=== PATIENT | female | born 1950 ===

== ENCOUNTER 2019-11-21 12:33 | Inpatient (IN) ==
[2019-11-21] MEDS ORDERED: ALBUTEROL 2.5 MG/3 ML NEB RESP TX PRN (16:00)
[2019-11-21] MEDS ORDERED: ACETAMINOPHEN 325 MG TABLET PO PRN (16:00)
[2019-11-21] MEDS ORDERED: ONDANSETRON 4 MG/2 ML VIAL IV PRN (16:00)
[2019-11-21] MEDS: PANTOPRAZOLE 40 MG TABLET PO SCH (17:00)
[2019-11-21] MEDS: LEVOFLOXACIN INJ 750 MG in PREMIX 1 EACH IV SCH (17:04)
[2019-11-21] MEDS: GABAPENTIN 600 MG TABLET PO SCH ×2 (17:10→20:55)
[2019-11-21] MEDS: LACTATED RINGERS 1,000 ML IV SCH ×2 (17:11→23:40)
[2019-11-21] MEDS: AMPICILLIN INJ 500 MG in SODIUM CHLORIDE 0.9% 100 ML IV SCH ×2 (18:28→23:40)
[2019-11-21] MEDS: BACLOFEN 10 MG TABLET PO SCH (20:55)
[2019-11-21] MEDS: APIXABAN 5 MG TABLET PO SCH (20:55)
[2019-11-22] MEDS: LACTATED RINGERS 1,000 ML IV SCH ×2 (01:11→10:31)
[2019-11-22 04:05] LABS: Basophils # 0.1 10*3/uL (0.0-0.2); Basophils % 0.6 % (0.0-0.8); Eosinophils # 0.2 10*3/uL (0.0-0.87); Eosinophils % 2.5 % (0.00-10.9); Hematocrit 34.6 VOL% (35.7-47.0); Hemoglobin 11.5 GM/DL (12.0-16.0); Immature Granulocytes % 0.4 %; Immature Granulocytes Absolute 0.03 #; Lymphocytes % 12.7 % (21.3-54.2); Mean Corpuscular HGB Conc 33.2 GM/DL (32-36); Mean Platelet Volume 9.4 FL (9.6-12.0); Monocytes % 8.8 % (1.7-12.7); Platelet Count 198 T/CUMM (130-400); Red Blood Count 3.72 MC/CUMM (3.8-5.5); Red Cell Distribution Width 14.1 % (9.3-17.3); White Blood Count 8.1 T/CUMM (4-12)
[2019-11-22 04:23] LABS: Blood Urea Nitrogen 5 MG/DL (7-18); Calcium 8.6 MG/DL (8.5-10.1); Estimated Glom Filtration Rate 112 ML/MIN; Glucose 98 MG/DL (74-106); Troponin I < 0.015 NG/ML (0.00-0.045)
[2019-11-22 05:07] LABS: INR 1.2; PT Patient Result 12.5 SECS (9.8-11.9)
[2019-11-22] MEDS: AMPICILLIN INJ 500 MG in SODIUM CHLORIDE 0.9% 100 ML IV SCH ×3 (06:29→18:00)
[2019-11-22] MEDS ORDERED: MAGNESIUM SULF RIDER 4 GM in PREMIX 1 EACH IV ONE (09:00)
[2019-11-22] MEDS: APIXABAN 5 MG TABLET PO SCH ×2 (09:42→20:11)
[2019-11-22] MEDS: PANTOPRAZOLE 40 MG TABLET PO SCH (09:42)
[2019-11-22] MEDS: GABAPENTIN 600 MG TABLET PO SCH ×3 (09:42→20:10)
[2019-11-22] MEDS: BACLOFEN 10 MG TABLET PO SCH ×2 (09:42→20:11)
[2019-11-22] MEDS: POTASSIUM CHLORIDE 20 MEQ TABLET PO SCH ×4 (09:42→20:11)
[2019-11-22] MEDS ORDERED: DOCUSATE SODIUM 100 MG CAPSULE PO SCH ×2 (10:53→11:23)
[2019-11-22] MEDS: METOPROLOL TARTRATE 50 MG TABLET PO SCH ×2 (11:50→20:11)
[2019-11-22] MEDS: CITALOPRAM 20 MG TABLET PO SCH (11:50)
[2019-11-22] MEDS: DOCUSATE SODIUM 100 MG CAPSULE PO SCH ×2 (11:50→20:11)
[2019-11-22] MEDS: hydroCHLOROthiazide 25 MG TABLET PO SCH (11:50)
[2019-11-22] MEDS: LEVOFLOXACIN INJ 750 MG in PREMIX 1 EACH IV SCH (16:12)
[2019-11-22] MEDS: AMITRIPTYLINE 25 MG TABLET PO SCH (20:14)
[2019-11-22] MEDS: DICYCLOMINE 10 MG CAPSULE PO SCH (20:14)
[2019-11-23] MEDS: AMPICILLIN INJ 500 MG in SODIUM CHLORIDE 0.9% 100 ML IV SCH ×4 (00:17→18:17)
[2019-11-23 06:13] LABS: Basophils # 0.1 10*3/uL (0.0-0.2); Basophils % 0.9 % (0.0-0.8); Eosinophils # 0.3 10*3/uL (0.0-0.87); Eosinophils % 3.4 % (0.00-10.9); Hematocrit 38.6 VOL% (35.7-47.0); Hemoglobin 12.7 GM/DL (12.0-16.0); Immature Granulocytes % 0.8 %; Immature Granulocytes Absolute 0.06 #; Lymphocytes # 1.4 10*3/uL (1.4-4.0); Lymphocytes % 18.1 % (21.3-54.2); Mean Corpuscular HGB Conc 32.9 GM/DL (32-36); Mean Corpuscular Volume 93.2 FL (87-102); Mean Platelet Volume 9.9 FL (9.6-12.0); Monocytes % 11.4 % (1.7-12.7); Neutrophils % 65.4 % (38.7-73.9); Platelet Count 255 T/CUMM (130-400); Red Blood Count 4.14 MC/CUMM (3.8-5.5); Red Cell Distribution Width 14.1 % (9.3-17.3); White Blood Count 7.4 T/CUMM (4-12)
[2019-11-23 06:33] LABS: Calcium 9.1 MG/DL (8.5-10.1); Osmolality,Calculated 270.8 MOS/KG (273-304)
[2019-11-23] MEDS: METOPROLOL TARTRATE 50 MG TABLET PO SCH ×2 (08:53→20:25)
[2019-11-23] MEDS: BACLOFEN 10 MG TABLET PO SCH ×2 (08:53→20:25)
[2019-11-23] MEDS: DICYCLOMINE 10 MG CAPSULE PO SCH ×2 (08:53→20:25)
[2019-11-23] MEDS: DOCUSATE SODIUM 100 MG CAPSULE PO SCH ×2 (08:53→20:25)
[2019-11-23] MEDS: hydroCHLOROthiazide 25 MG TABLET PO SCH (08:53)
[2019-11-23] MEDS: APIXABAN 5 MG TABLET PO SCH ×2 (08:53→20:25)
[2019-11-23] MEDS: CITALOPRAM 20 MG TABLET PO SCH (08:53)
[2019-11-23] MEDS: POTASSIUM CHLORIDE 10 MEQ TABLET PO SCH (08:53)
[2019-11-23] MEDS: GABAPENTIN 600 MG TABLET PO SCH ×3 (08:53→20:25)
[2019-11-23] MEDS: SIMVASTATIN 20 MG TABLET PO SCH (08:54)
[2019-11-23] MEDS: PANTOPRAZOLE 40 MG TABLET PO SCH (08:54)
[2019-11-23] MEDS: LEVOFLOXACIN INJ 750 MG in PREMIX 1 EACH IV SCH (16:37)
[2019-11-23] MEDS: AMITRIPTYLINE 25 MG TABLET PO SCH (20:25)
[2019-11-24] MEDS: AMPICILLIN INJ 500 MG in SODIUM CHLORIDE 0.9% 100 ML IV SCH ×4 (00:34→18:15)
[2019-11-24 06:01] LABS: Basophils # 0.1 10*3/uL (0.0-0.2); Basophils % 0.9 % (0.0-0.8); Eosinophils # 0.3 10*3/uL (0.0-0.87); Hematocrit 40.1 VOL% (35.7-47.0); Hemoglobin 13.4 GM/DL (12.0-16.0); Immature Granulocytes % 0.8 %; Immature Granulocytes Absolute 0.06 #; Lymphocytes # 1.6 10*3/uL (1.4-4.0); Lymphocytes % 20.5 % (21.3-54.2); Mean Corpuscular HGB Conc 33.4 GM/DL (32-36); Mean Corpuscular Volume 91.6 FL (87-102); Mean Platelet Volume 9.7 FL (9.6-12.0); Monocytes % 10.8 % (1.7-12.7); Platelet Count 261 T/CUMM (130-400); Red Blood Count 4.38 MC/CUMM (3.8-5.5); White Blood Count 7.7 T/CUMM (4-12)
[2019-11-24 06:35] LABS: Hypochromasia 1+; Microcytosis Slight; Platelet Estimate Adequate
[2019-11-24 06:41] LABS: Calcium 9.7 MG/DL (8.5-10.1); Osmolality,Calculated 270.8 MOS/KG (273-304)
[2019-11-24] MEDS: CHOLECALCIFEROL 1,000 UNIT TABLET PO SCH (09:30)
[2019-11-24] MEDS: DICYCLOMINE 10 MG CAPSULE PO SCH ×2 (09:30→20:39)
[2019-11-24] MEDS: POTASSIUM CHLORIDE 10 MEQ TABLET PO SCH (09:30)
[2019-11-24] MEDS: DOCUSATE SODIUM 100 MG CAPSULE PO SCH ×2 (09:30→20:38)
[2019-11-24] MEDS: SIMVASTATIN 20 MG TABLET PO SCH (09:31)
[2019-11-24] MEDS: hydroCHLOROthiazide 25 MG TABLET PO SCH (09:31)
[2019-11-24] MEDS: CITALOPRAM 20 MG TABLET PO SCH (09:31)
[2019-11-24] MEDS: APIXABAN 5 MG TABLET PO SCH ×2 (09:31→20:38)
[2019-11-24] MEDS: GABAPENTIN 600 MG TABLET PO SCH ×3 (09:31→20:38)
[2019-11-24] MEDS: PANTOPRAZOLE 40 MG TABLET PO SCH (09:32)
[2019-11-24] MEDS: BACLOFEN 10 MG TABLET PO SCH ×2 (09:32→20:39)
[2019-11-24] MEDS: METOPROLOL TARTRATE 50 MG TABLET PO SCH ×2 (09:32→20:39)
[2019-11-24] MEDS ORDERED: POTASSIUM CHLORIDE 20 MEQ TABLET PO ONE (10:17)
[2019-11-24] MEDS: LEVOFLOXACIN INJ 750 MG in PREMIX 1 EACH IV SCH (16:41)
[2019-11-24] MEDS: AMITRIPTYLINE 25 MG TABLET PO SCH (20:39)
[2019-11-25] MEDS: AMPICILLIN INJ 500 MG in SODIUM CHLORIDE 0.9% 100 ML IV SCH ×3 (00:07→12:31)
[2019-11-25 05:11] LABS: Basophils # 0.1 10*3/uL (0.0-0.2); Basophils % 1.3 % (0.0-0.8); Eosinophils # 0.3 10*3/uL (0.0-0.87); Hematocrit 40.1 VOL% (35.7-47.0); Hemoglobin 13.1 GM/DL (12.0-16.0); Immature Granulocytes % 0.9 %; Immature Granulocytes Absolute 0.07 #; Lymphocytes # 1.7 10*3/uL (1.4-4.0); Lymphocytes % 22.7 % (21.3-54.2); Mean Corpuscular HGB Conc 32.7 GM/DL (32-36); Mean Corpuscular Volume 92.8 FL (87-102); Mean Platelet Volume 9.6 FL (9.6-12.0); Monocytes % 12.8 % (1.7-12.7); Neutrophils % 58.3 % (38.7-73.9); Platelet Count 282 T/CUMM (130-400); Red Blood Count 4.32 MC/CUMM (3.8-5.5); White Blood Count 7.4 T/CUMM (4-12)
[2019-11-25 05:32] LABS: Calcium 9.5 MG/DL (8.5-10.1); Osmolality,Calculated 277.4 MOS/KG (273-304)
[2019-11-25] MEDS: POTASSIUM CHLORIDE 10 MEQ TABLET PO SCH (09:50)
[2019-11-25] MEDS: CHOLECALCIFEROL 1,000 UNIT TABLET PO SCH (09:50)
[2019-11-25] MEDS: METOPROLOL TARTRATE 50 MG TABLET PO SCH (09:50)
[2019-11-25] MEDS: hydroCHLOROthiazide 25 MG TABLET PO SCH (09:50)
[2019-11-25] MEDS: DICYCLOMINE 10 MG CAPSULE PO SCH (09:50)
[2019-11-25] MEDS: DOCUSATE SODIUM 100 MG CAPSULE PO SCH (09:50)
[2019-11-25] MEDS: CITALOPRAM 20 MG TABLET PO SCH (09:51)
[2019-11-25] MEDS: PANTOPRAZOLE 40 MG TABLET PO SCH (09:51)
[2019-11-25] MEDS: GABAPENTIN 600 MG TABLET PO SCH (09:51)
[2019-11-25] MEDS: SIMVASTATIN 20 MG TABLET PO SCH (09:51)
[2019-11-25] MEDS: BACLOFEN 10 MG TABLET PO SCH (09:51)
[2019-11-25] MEDS: APIXABAN 5 MG TABLET PO SCH (09:51)
[2019-11-25 11:03] VITALS: BP 93/52
== END 2019-11-25 15:26 | disposition home health service (06) | DRG 194 ==
LOC: SUATTDRO 15:40 → N.ICU 15:40 → N.4E 11-22 13:52
PROVIDERS: ADMIT Internal Medicine; ATTEND Family Medicine